=== PATIENT | male | born 1955 ===

== ENCOUNTER 2019-04-18 00:50 | Inpatient (IN) | payer BC, MEDICARE ==
[2019-04-17 14:36] LABS: INR 0.99
--- NOTE | 2019-04-17 17:16 | RADIOLOGY IMAGING REPORT ---
[place] [facility] [place] NAME: Tylor Davis : 1955 MR: [id number] V: [id number] EXAM DATE: ORDERING PHYSICIAN: TYLOR BHATT TECHNOLOGIST: Location: [facility] Patient: Tylor Davis : 1955 Visit/Account:[id number] Date of Sevice: 04/17/2019 XR KNEES BILAT AP STANDING, LEGS BILAT STANDING HIPS-ANKLE History: Patient for right knee arthroplasty. Comparison study: None. Findings: There are findings of diffuse joint space narrowing involving the right and left knee. Th e findings are suggestive of osteoarthrosis. There are findings of superolateral joint space now with subchondral sclerosis involving hips bilater ally also suggestive osteoarthrosis. The right hip joint and right knee joint are both lower than the joints on the contralateral side. There are no findings of a fracture. There is minimal vascular calcification. Surgical clips are no prashanth medially in the left leg. IMPRESSION: 1. Moderate findings of osteoarthrosis involving the right and left knee. 2. Moderate findings of osteoarthrosis involving the right and left hip. 3. Postoperative changes left subcutaneous tissues. 4. Note that the right hip joint and right knee joint are located inferior to the respective joints on the contralateral side. The iliac wings are not seen and there entirety. Report Dictated By: Noel Cooper MD at 04/17/2019 5:07 PM Report E-Signed By: Noel Cooper MD at 04/17/2019 5:09 PM WSN:[email or web address]
--- NOTE | 2019-04-17 17:16 | RADIOLOGY IMAGING REPORT ---
FACILITY: [facility] [place] PATIENT NAME: Tylor Davis : 1955 MR: [id number] V: [id number] EXAM DATE: ORDERING PHYSICIAN: TYLOR BHATT TECHNOLOGIST: Location: [facility] Patient: Tylor Davis : 1955 Visit/Account:[id number] Date of Sevice: 04/10/2019 XR KNEES BILAT AP STANDING, LEGS BILAT STANDING HIPS-ANKLE History: Patient for right knee arthroplasty. Comparison study: None. Findings: There are findings of diffuse joint space narrowing involving the right and left knee. Th e findings are suggestive of osteoarthrosis. There are findings of superolateral joint space now with subchondral sclerosis involving hips bilater ally also suggestive osteoarthrosis. The right hip joint and right knee joint are both lower than the joints on the contralateral side. There are no findings of a fracture. There is minimal vascular calcification. Surgical clips are no prashanth medially in the left leg. IMPRESSION: 1. Moderate findings of osteoarthrosis involving the right and left knee. 2. Moderate findings of osteoarthrosis involving the right and left hip. 3. Postoperative changes left subcutaneous tissues. 4. Note that the right hip joint and right knee joint are located inferior to the respective joints on the contralateral side. The iliac wings are not seen and there entirety. Report Dictated By: Noel Cooper MD at 04/17/2019 5:07 PM Report E-Signed By: Noel Cooper MD at 04/17/2019 5:09 PM WSN:[email or web address]
[~2019-04-18] VITALS: Ht 175.3 cm; Wt 82.6 kg
[2019-04-18] VITALS (15 sets, daily range): BP systolic 97–114; BP diastolic 56–73
[~2019-04-18 00:50] MED LIST: CELE-1 PO; CLOP75TA43 PO; EMPA10TA PO; EZET10TA41 PO; INSU100C14 SQ; INSU100I10 SC; LISI5TAB25 PO; METF-452 PO; PANT40TA65 PO; ROSU10TA PO; TAMS0.4C25 PO; TRAM-420 PO
[2019-04-18] MEDS ORDERED: ceFAZolin(*) 2GM/D5W 50ML 50 ML IVPB ONE (06:00)
[2019-04-18] MEDS ORDERED: FAMOTIDINE 20 MG TAB PO ONE (06:05)
[2019-04-18] MEDS ORDERED: fentaNYL CITR 100 MCG/2 ML AMP ONE ×2 (06:05→10:06)
[2019-04-18] MEDS ORDERED: ONDANSETRON 4 MG/2 ML VIAL ONE (06:06)
[2019-04-18] MEDS ORDERED: LIDOCAINE MPF 1% 5 ML VIAL ONE (06:06)
[2019-04-18] MEDS ORDERED: PROPOFOL EMUL(*) 10MG/ML 20 ML 20 ML ONE (06:06)
[2019-04-18] MEDS ORDERED: DEXAMETHASONE SOD PHOS 10MG/ML ONE (06:06)
[2019-04-18] MEDS ORDERED: ACETAMINOPHEN 500 MG TAB PO ONE (06:15)
[2019-04-18] MEDS ORDERED: CELECOXIB 200 MG CAP PO ONE (06:15)
[2019-04-18] MEDS ORDERED: LIDOCAINE/SOD BICARB 8.4% SYR ID ONE (06:15)
[2019-04-18] MEDS ORDERED: NORMOSOL R SOLN(*) 1000 ML BAG 1,000 ML IV PRN (06:15)
[2019-04-18] MEDS ORDERED: ROPIVACAINE/EPI/CLONIDINE/KET 50 ML SYRINGE INJ ONE (06:15)
[2019-04-18] MEDS ORDERED: MIDAZOLAM 2 MG/2 ML VIAL IVP PRN (06:15)
[2019-04-18] MEDS ORDERED: PREGABALIN 150 MG CAPSULE PO ONE (06:15)
[2019-04-18] MEDS ORDERED: TRANEXAMIC AC 1000 MG/10ML SDV 1,000 MG in DEXTROSE 5% 50 ML BAG 50 ML IV ONE (07:00)
[2019-04-18] MEDS ORDERED: TRANEXAMIC AC 1000 MG/10ML SDV 1,000 MG in DEXTROSE 5% 50 ML BAG 50 ML IVPB ONE (07:00)
[2019-04-18] MEDS ORDERED: ACETAMINOPHEN(*)1000 MG/100 ML 100 ML IVPB ONE (09:35)
[2019-04-18] MEDS ORDERED: ACETAMINOPHEN 500 MG TAB PO PRN (09:45)
[2019-04-18] MEDS ORDERED: ONDANSETRON 4 MG/2 ML VIAL IVP PRN (09:45)
[2019-04-18] MEDS ORDERED: PROMETHAZINE 25 MG/ML 1 ML AMP IVP PRN (09:45)
[2019-04-18] MEDS ORDERED: KCL/D5LR 20 MEQ/1000 ML PREMIX 1,000 ML IV PRN (09:45)
[2019-04-18] MEDS ORDERED: FLUSH 10 ML SYR IVP PRN (09:45)
[2019-04-18] MEDS ORDERED: diphenhydrAMINE 25 MG CAP PO PRN (09:45)
[2019-04-18] MEDS ORDERED: NALOXONE HCL 0.4 MG/ML VIAL IVP PRN (09:45)
[2019-04-18] MEDS ORDERED: MAGNESIUM CITRATE 300 ML BTL PO PRN (09:45)
[2019-04-18] MEDS ORDERED: oxyCODON/ACET (*)5/325MG (CII) 1 TAB TAB PO PRN (09:45)
[2019-04-18] MEDS ORDERED: MORPHINE 50 MG/50 ML PCA BAG IV PRN (09:45)
[2019-04-18] MEDS ORDERED: PROMETHAZINE 25 MG/ML 1 ML AMP ONE (10:19)
--- NOTE | 2019-04-18 10:46 | RADIOLOGY IMAGING REPORT ---
FACILITY: [facility] PATIENT NAME: Tylor Davis : 1955 MR: [id number] V: [id number] EXAM DATE: ORDERING PHYSICIAN: TYLOR BHATT TECHNOLOGIST: Location: [facility] [place] Patient: Tylor Davis : 1955 Visit/Account:[id number] Date of Sevice: 04/18/2019 Right knee Indication: Postop Comparison: X-ray examination knees from March 2018 Findings: Two views right knee demonstrate expected appearance status post right total knee arthroplasty with e xpected soft tissue changes. Alignment is anatomic. IMPRESSION: 1. Expected postoperative appearance status post right knee arthroplasty Report Dictated By: Josh Platt MD at 04/18/2019 10:37 AM Report E-Signed By: Josh Platt MD at 04/18/2019 10:38 AM WSN:[email or web address]
--- NOTE | 2019-04-18 11:47 | OPERATIVE REPORT 1 ---
EVENT DATE: April 18, 2019 SURGEON: Tylor Burdick MD ANESTHESIOLOGIST: Saúl Funes MD ANESTHESIA: General plus spinal. RENEWABLE ENERGY CONSULTANT: Dilip Flowers PA-C PREOPERATIVE DIAGNOSIS Right knee degenerative joint disease. POSTOPERATIVE DIAGNOSIS Right knee degenerative joint disease. PROCEDURE PERFORMED Right total knee arthroplasty; CPT Code 68618. ESTIMATED BLOOD LOSS 50 mL. IVF 1200 crystalloid. TOURNIQUET TIME 56 minutes. SPECIMENS None. COMPLICATIONS None. IMPLANTS USED DePuy Picitup posterior stabilized size 8 right cemented femur, tibial insert size 8 x 7 mm rotating platform, posterior stabilized, tibial baseplate size 8 cemented, 35 mm anatomic cemented patella. DESCRIPTION OF PROCEDURE The patient was brought to the operating room and placed on the OR table in the supine position. He was given an injection into his spine to help with pain control postoperatively but without creating a long-term block. He was then given a light general anesthetic. His right lower extremity was prepped and draped in the usual sterile fashion. The limb was exsanguinated and the tourniquet was inflated. A longitudinal incision was made in the skin as previously marked in the preoperative holding area. We had to cut through a fairly large bursa. There was no sign of purulence and it was not really that inflamed; he just had a lot of soft tissue so some of this was debrided. We did a medial patellar arthrotomy. The fluid was clear. We resected the ACL and the patellofemoral ligament and then cleared the soft tissue from above the arthritic femoral condyle. He had a rather unusual shaped knee in that it was rather tall anterior to posterior compared to its width medial to lateral, which made things a little bit more challenging. We got our initial intramedullary guidance on the femur as per the long-plate films. We set it at 5 degrees for the cut and 9 mm off the end. When we did this, there was still a moderate amount of notch remaining and it did not really look like it had gone deep enough so we did deepen the cut but one step and cut again, which was still a little shallow but more acceptable. We then trialed it and surprisingly it was an 8. This was certainly not an 8 medial to lateral but it is an 8 anterior to posterior so that is what we went with. Even with that, I was still a little bit tight on the anterior cut but we beveled that so that we would not end up with an undercut on the cortical wall. Once we had done our chamfer cuts, we removed this and cleared the soft tissue. We removed the remainder of menisci that were in the way and then trialed with the claw. It looked like it would fit well so we went ahead with our cut for the posterior stabilized block. Here again, it was a little bit too wide so we had to modify its normal position just a slight amount and then we trialed with the implant and drilled the lug holes. We then went to the tibia, once again gaining intramedullary access with posterior protection. We then measured 2 mm below the deficient medial side, had already done a periosteal release on the medial side to balance things out and we checked on the lateral side and we were only taking off about 7 so I did cut down a little bit more so we took 9 below the intact lateral side and made our cut. At this point, I placed a suitcase handle retractor and elevated and then did our injection of the cocktail to posterior capsule as well as the periosteum It looked like a size 8 would fit best. We had also removed a little bit of the posterior condyle and capsules so we could ensure that we had adequate balance. We then cut for the 8, set that in and then did all of our trials. We had decent extension with a 5 mm but it was still a little bit loose so I knew we would need to go a bit bigger than this. We then took a look at the patella, made our cut. It was 25 mm thick so we cut it down to 15 and then trialed a 35, which fit well. Once setting the rotation for the anatomic implant, this was drilled and then we placed the trial and ranged him. He had no tendency to sublux. At this point, we prepared mixed cement and opened implants. The wound was irrigated throughout. Aricept was placed, which was later washed out. We placed the cement plugs both at the femur and the tibia and then went ahead with our cementation with the tibia followed by the insert trial and then the femur followed by the patella. We held it locked and loaded until full polymerization and then deflated the tourniquet. We then controlled bleeding with unipolar cautery followed by repeat Aricept irrigation and then repeat wash-out. We changed the draping on the lower aspect of the bed to start with a clean surface, washed it one final time and then started closure with #1 Vicryl followed by 3-0 Vicryl and then Monocryl with Dermabond and a mesh strip. A dressing was applied. He was awakened and transferred to the recovery room in stable condition. His intention was to go home the same day if possible. RAMANDEEP
--- NOTE | 2019-04-18 13:54 | Hospitalist Consultation ---
History of Present Illness Requesting Physician Dr. Burdick Reason for Consult CAD, Diabetes type 2 Chief Complaint s/p right knee replacement History of Present Illness He was admitted s/p right knee replacement. It is reported the surgery went well and without complication. History Problems: (1) Type 2 diabetes mellitus Status: Chronic (2) CAD (coronary artery disease) Status: Chronic (3) GERD (gastroesophageal reflux disease) Status: Chronic (4) BPH (benign prostatic hyperplasia) Status: Chronic Home Meds Reported Medications Tramadol Hcl (TRAMADOL HCL) 50 Mg Tablet, 0.5 TAB PO PRN, TAB 04/10/19 Tamsulosin Hcl (FLOMAX) 0.4 Mg Cap.er.24h, 0.4 MG PO QHS, CAP 04/10/19 Empagliflozin (Jardiance) 10 Mg Tablet, 10 MG PO QDAY 04/10/19 Insulin Aspart (NOVOLOG) 100 Unit/1 Ml Cartridge, 15 UNIT SQ ACHS 04/10/19 Insulin Glargine,Hum.rec.anlog (Basaglar Kwikpen U-100) 100 Unit/Ml (3 Ml) Insuln.pen, 27 UNITS SC QPM 04/10/19 Insulin Glargine,Hum.rec.anlog (Basaglar Kwikpen U-100) 100 Unit/Ml (3 Ml) Insuln.pen, 40 SC QAM 04/10/19 Rosuvastatin Calcium (CRESTOR) 10 Mg Tab, 10 MG PO QDAY, #5 TAB 04/10/19 Ezetimibe (ZETIA) 10 Mg Tablet, 10 MG PO QDAY, TAB 04/10/19 Pantoprazole Sodium (PANTOPRAZOLE SODIUM) 40 Mg Tablet.dr, 40 MG PO QDAY, TAB.SR 04/10/19 Clopidogrel Bisulfate (PLAVIX) 75 Mg Tablet, 1 TAB PO QDAY, TAB 04/10/19 Lisinopril (LISINOPRIL) 5 Mg Tablet, 5 MG PO QDAY, TAB 04/10/19 Metformin Hcl (METFORMIN HCL) 1,000 Mg Tablet, 1 TAB PO BID, TAB 04/10/19 Celecoxib (CELEBREX) 200 Mg Capsule, 200 MG PO BID, CAPSULE 04/10/19 Allergies: Coded Allergies: No Known Drug Allergies (Unverified , 04/10/19) Patient History: FH: CAD (coronary artery disease) FATHER, MOTHER, FH: diabetes mellitus FATHER, MOTHER, Hx Smoking: No Smoking Status: Never Smoker Exposure to Second Hand Smoke?: No Caffeine Intake: Coffee Caffeine/Cups Per Day: 2 CPD Hx Alcohol Use: Yes Hx Substance Use Disorder: No Social Drug Use: Never History of IV Drug Use: No Review of Systems All Systems Reviewed/Normal: Yes, Except as Noted Constitutional: Other (sleeping throughout exam) Exam Vital Signs Vital Signs Date Time Temp Pulse Resp B/P (MAP) Pulse Ox O2 Delivery O2 Flow Rate FiO2 04/18/19 13:13 101/60 (74) 04/18/19 13:00 63 95 04/18/19 10:40 Nasal Cannula 1.0 04/18/19 10:40 98.0 12 General Appearance: No Acute Distress Respiratory: No Respiratory Distress Psych: Other (sleeping throughout exam) Assessment and Plan Problems: (1) Status post right knee replacement Status: Acute Assessment & Plan: Followed by Dr. Burdick. (2) Type 2 diabetes mellitus Status: Chronic Assessment & Plan: He is on chronic treatment with Metformin, Jardiance, Novolog, and Lantus. Metformin will be resumed. He will be placed on Lantus at a lower dose. He will also be placed on AC/HS blood glucose monitoring, SS insulin #2 and ADA diet. (3) CAD (coronary artery disease) Status: Chronic Assessment & Plan: Continue chronic Plavix. Had CABG in 2001, [place] 1984. (4) BPH (benign prostatic hyperplasia) Status: Chronic Assessment & Plan: Continue chronic Flomax. (5) GERD (gastroesophageal reflux disease) Status: Chronic Assessment & Plan: Continue chronic Protonix. (6) Hyperlipidemia Status: Chronic Assessment & Plan: Continue chronic Zetia and Crestor. Venous Thromboembolism Antithrombotics Is Pt On Any Antithrombotics?: No Exam Sepsis Risk: No Definite Risk LISSET FU HOSE TESTER Apr 18, 2019 13:53
[2019-04-18] MEDS: traMADol 50 MG TAB PO PRN ×2 (14:47→20:22)
[2019-04-18] MEDS ORDERED: NS(*) 0.9% 250 ML BAG 250 ML ONE (14:56)
[2019-04-18] MEDS: ceFAZolin(*) 1 GM VIAL 1 GM in NS(*) 0.9% 100 ML MINI-BAG 100 ML IVPB SCH ×2 (15:02→22:54)
--- NOTE | 2019-04-18 16:30 | NUR ---
Physical Therapy Impression PT eval completed followed by treatment session. Pt is modified indep for bed mobility and supine to/from sit transfers, as well as SBA/Modified indep for sit to/from stand transfers. Pt tolerated ambulation x 150' with FWW and SBA/Mod indep, on room air and no signs or symptoms of dizziness. Pt notes that he would like to attempt up/down step tomorrow morning, prior to anticipated d/c. Pt encouraged to ambulate as desired with nursing this evening and alternate this with ice application and elevation to manage edema, as well as use of CPM as tolerated to advance flexion as able. Physical Therapy Goals 1. Pt to be SBA/Mod indep for bed mobility and sup<>sit transfers 2. Pt to be SBA/Mod indep for sit to/from stand transfers 3. Pt to be SBA/Mod indep for ambulation x 150' with FWW 4. Pt to complete up/down platform step x 2 reps with least restrictive device and CGA/SBA Patient's Goals
[2019-04-18] MEDS: INSULIN HUM LISPRO 100 UN/ML 3 ML VIAL SUBQ PRN (17:20)
[2019-04-18] MEDS: INSULIN GLARGINE 100 U/ML 3 ML PEN SUBQ SCH (20:26)
[2019-04-18] MEDS ORDERED: TAMSULOSIN HCL 0.4 MG CAP PO SCH (21:00)
[2019-04-19 02:22] VITALS: BP 106/59
[2019-04-19] MEDS: traMADol 50 MG TAB PO PRN ×3 (02:30→10:26)
[2019-04-19 05:40] LABS: PLATELET COUNT, AUTOMATED 171 K/uL (150-450)
[2019-04-19] MEDS: ceFAZolin(*) 1 GM VIAL 1 GM in NS(*) 0.9% 100 ML MINI-BAG 100 ML IVPB SCH (05:53)
[2019-04-19 07:58] VITALS: BP 106/74
[2019-04-19] MEDS: INSULIN GLARGINE 100 U/ML 3 ML PEN SUBQ SCH (08:40)
[2019-04-19] MEDS: INSULIN HUM LISPRO 100 UN/ML 3 ML VIAL SUBQ PRN (08:41)
[2019-04-19] MEDS ORDERED: LISINOPRIL 5 MG TAB PO SCH (09:00)
[2019-04-19] MEDS ORDERED: CLOPIDOGREL BISULFATE 75MG TAB PO SCH (09:00)
[2019-04-19] MEDS ORDERED: EMPAGLIFLOZIN 10 MG TABLET PO SCH (09:00)
[2019-04-19] MEDS ORDERED: metFORMIN HCL 500 MG TAB PO SCH (09:00)
[2019-04-19] MEDS ORDERED: ROSUVASTATIN CALCIUM 10 MG TAB PO SCH (09:00)
[2019-04-19] MEDS ORDERED: PANTOPRAZOLE SOD 40 MG TABEC PO SCH (09:00)
[2019-04-19] MEDS ORDERED: EZETIMIBE 10 MG TAB PO SCH (09:00)
--- NOTE | 2019-04-19 09:22 | NUR ---
Physical Therapy Impression Patient presents in room and is agreeable to therapy. I with bed mobility and transfers. Performed bed exercises in supine and showed good understanding and technique has written handout for home. Patient ambulated with FWW 150 feet with SBA and cuing for weight shift onto right with step through gait. Patient ascended and descended 1 platform step with FWW x 2 reps for cuing fo sequencing. All goals met and patient is ready to d/c to home where he will begin OP PT. Physical Therapy Goals 1. Pt to be SBA/Mod indep for bed mobility and sup<>sit transfers 2. Pt to be SBA/Mod indep for sit to/from stand transfers 3. Pt to be SBA/Mod indep for ambulation x 150' with FWW 4. Pt to complete up/down platform step x 2 reps with least restrictive device and CGA/SBA Patient's Goals
--- NOTE | 2019-04-19 09:41 | Hospitalist Progress Note ---
Subjective Progress Notes Subjective He was admitted s/p knee replacement. He had no acute events overnight. Patient Complains of: Cardiovascular: No: Chest Pain Respiratory: No: Shortness of Breath Physical Exam Vital Signs Date Time Temp Pulse Resp B/P (MAP) Pulse Ox O2 Delivery O2 Flow Rate FiO2 04/19/19 07:58 98.1 70 15 106/74 (85) 99 Room Air 04/18/19 10:40 1.0 Intake and Output 04/19/19 07:03 Intake Total 2520 ml Balance 2520 ml Intake Oral 420 ml IV Total 2100 ml # Voids 2 General Appearance: Alert, Awake, No Acute Distress, Afebrile Neuro: No Gross deficits Cardiovascular: Regular Rate and Rhythm Respiratory: No Respiratory Distress, Clear to Auscultation GI: Soft and Non-Tender Psych: Alert & Oriented X3, Appropriate Mood & Affect Result Diagram: 04/19/19 0522 Assessment and Plan Problems: (1) Status post right knee replacement Status: Acute Assessment & Plan: Followed by Dr. Burdick. (2) Type 2 diabetes mellitus Status: Chronic Assessment & Plan: He is on chronic treatment with Metformin, Jardiance, Novolog, and Lantus. Metformin and Jardiance will be resumed. He was placed on Lantus at a lower dose initially, but will resume his usual dose at home. He was placed on AC/HS blood glucose monitoring, SS insulin #2 and ADA diet. (3) CAD (coronary artery disease) Status: Chronic Assessment & Plan: Continue chronic Plavix. Had CABG in 2001, [place] 1984. (4) BPH (benign prostatic hyperplasia) Status: Chronic Assessment & Plan: Continue chronic Flomax. (5) GERD (gastroesophageal reflux disease) Status: Chronic Assessment & Plan: Continue chronic Protonix. (6) Hyperlipidemia Status: Chronic Assessment & Plan: Continue chronic Zetia and Crestor. Exam Sepsis Risk: No Definite Risk LISSET FU INFORMATION SERVICES ASSISTANT Apr 19, 2019 09:41
[2019-04-19] MEDS ORDERED: TRAM-420 PO (09:53)
[2019-04-19] MEDS ORDERED: CEPH500T7 PO (09:53)
== END 2019-04-19 10:40 | disposition home or self-care (01) | DRG 470 ==
LOC: OR 00:50 → MED 10:40 → OBSVTOIN 10:40
PROVIDERS: ADMIT Orthopaedic Surgery Hand Surgery; ATTEND Orthopaedic Surgery Hand Surgery
PROC: 0SRC0J9 Replacement of Right Knee Joint with Synthetic Substitute, Cemented, Open Approach (ICD-10-PCS; principal; 2019-04-18 07:15)
DX: M17.11 Unilateral primary osteoarthritis, right knee (principal); I25.10 Atherosclerotic heart disease of native coronary artery without angina pectoris; E11.9 Type 2 diabetes mellitus without complications; K21.9 Gastro-esophageal reflux disease without esophagitis; N40.0 Benign prostatic hyperplasia without lower urinary tract symptoms; E78.5 Hyperlipidemia, unspecified; Z79.4 Long term (current) use of insulin; Z79.84 Long term (current) use of oral hypoglycemic drugs; Z95.1 Presence of aortocoronary bypass graft; I25.2 Old myocardial infarction
CPT/HCPCS: 36415; 36416; 77073; 82948; 85025; 85610; 86850; 86900; 86901; 96372; 97161; C1713; C1776; G0378; J0131; J0690; J1100; J1815; J2001; J2405; J2550; J2704; J3010; J7060